=== PATIENT | male | born 1995 | race African-American/Black ===

== ENCOUNTER 2016-11-06 09:13 | Emergency (ER) | payer OTHER ==
[2016-11-06] MEDS ORDERED: IOPAMIDOL-300 100 ML VIAL IVP ONE (11:08)
[2016-11-06] MEDS ORDERED: INSULIN REGULAR HUMAN 100 UNIT/1 ML 10 ML MDV IVP STA ×3 (11:42→15:26)
[2016-11-06] MEDS ORDERED: SODIUM CHLORIDE 0.9% 1,000 ML IV ONE ×2 (11:42→14:05)
[2016-11-06] MEDS ORDERED: INSULIN REGULAR HUMAN 100 UNIT/1 ML 10 ML MDV ONE ×3 (11:47→15:27)
== END 2016-11-06 16:18 | disposition home or self-care (01) ==
DX: E86.0 Dehydration (principal); R10.84 Generalized abdominal pain; E11.65 Type 2 diabetes mellitus with hyperglycemia; R03.0 Elevated blood-pressure reading, without diagnosis of hypertension
CPT/HCPCS: 36415; 74000; 74177; 80053; 81002; 82009; 83036; 83690; 85025; 96360; 96361; 99284; 99285; J1815; Q9967

== ENCOUNTER 2017-01-08 22:22 | Emergency (ER) | payer OTHER ==
[2017-01-08 22:36] VITALS: BP 142/96
[2017-01-08] MEDS ORDERED: CYCLOBENZAPRINE 10 MG TABLET PO STA (23:11)
[2017-01-08] MEDS ORDERED: NAPROXEN 250 MG TABLET PO STA (23:11)
[2017-01-08] MEDS ORDERED: CYCLOBENZAPRINE 10 MG TABLET PO ONE (23:14)
--- NOTE | 2017-01-08 23:14 | ED Physician Documentation ---
PD HPI HEENT - Stated complaint Stated Complaint: JAW PX - Chief complaint Chief Complaint: Heent - History obtained from History obtained from: Patient, Family - History of Present Illness Timing - onset: How many weeks ago (2) Timing - details: Gradual onset, Still present, Intermittant Location: Other (jaw) Worsens: Other (chewing and opening mouth) Associated symptoms: No: Fever, Congestion, Unable to swallow, Swollen nodes Similar symptoms before: No diagnosis Recently seen: Not recently seen - Additional information Additional information: Patient is a 21 year old male with no significant past medical history who is presenting to the emergency department for atraumatic jaw pain. Patient states that he notices it more when he wakes up in the morning and after chewing. patient also states that it clicks and pops frequently as well. Review of Systems Constitutional: denies: Fever, Chills Eyes: denies: Loss of vision, Photophobia Ears: denies: Ear pain Nose: denies: Rhinorrhea / runny nose, Congestion Cardiac: denies: Chest pain / pressure Respiratory: denies: Cough GI: denies: Abdominal Pain, Nausea, Vomiting Skin: denies: Rash, Lesions, Abrasion (s) Neurologic: denies: Generalized weakness, Focal weakness, Numbness Immunocompromised: denies: Immunocompromised PD PAST MEDICAL HISTORY - Past Medical History Past Medical History: Yes Cardiovascular: None Respiratory: None Neuro: None Endocrine/Autoimmune: Type 2 diabetes GI: None : None HEENT: None Psych: None Musculoskeletal: None Derm: None - Past Surgical History Past Surgical History: No - Present Medications Home Medications: Ambulatory Orders Medication Instructions Recorded Confirmed Cyclobenzaprine [Flexeril] 10 mg PO DAILY #14 tablet 01/08/17 Insulin Glargine [Lantus] 32 unit SUBQ DAILY 01/08/17 01/08/17 Naproxen [Naprosyn] 250 mg PO BID #28 tablet 01/08/17 - Allergies Allergies/Adverse Reactions: Allergies Allergy/AdvReac Type Severity Reaction Status Date / Time No Known Drug Allergies Allergy Verified 01/08/17 22:34 - Social History Does the pt smoke?: No Smoking Status: Never smoker Does the pt drink ETOH?: No Does the pt have substance abuse?: No - Immunizations Immunizations are current?: Yes - POLST Patient has POLST: No PD ED PE NORMAL - Vitals Vital signs reviewed: Yes - General General: Alert and oriented X 3, No acute distress - HEENT HEENT: Atraumatic, PERRL, Pharynx benign - Neck Neck: Supple, no meningeal sign, No JVD - Cardiac Cardiac: RRR, No murmur - Respiratory Respiratory: No respiratory distress, Clear bilaterally - Abdomen Abdomen: Soft, Non tender, Non distended - Derm Derm: Normal color, Warm and dry, No rash - Extremities Extremities: No deformity, No tenderness to palpate, Normal ROM s pain - Neuro Neuro: Alert and oriented X 3, 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 Patient was in no acute distress. Patient's findings were consistent with tmj. Patient was treated with naproxen and flexeril. Patient required no further inpatient work up at this time and was stable for discharge with outpatient follow up. Departure - Departure Disposition: 01 Home, Self Care Clinical Impression: TMJ (sprain of temporomandibular joint) Condition: Good Instructions: ED TMJ Syndrome Follow-Up: JONATHAN MEI [Primary Care Provider] - Within 1 week Prescriptions: Cyclobenzaprine [Flexeril] 10 mg PO DAILY #14 tablet Naproxen [Naprosyn] 250 mg PO BID #28 tablet Comments: Your symptoms are likely being caused by inflammation of your tmj. You should trial a two week course of naproxen twice a day and flexeril before you go to bed. You should take the naproxen with mild or food and you cannot take the flexeril with alcohol or other sedatives. You should follow up with your pmd if your symptoms persist, and your dentist for mouth gaurd. You may return to the emergency department at any time for new, worsening or uncontrollable sympotms.
[2017-01-08] MEDS ORDERED: NAPROXEN 250 MG TABLET PO ONE (23:15)
== END 2017-01-08 23:27 | disposition home or self-care (01) ==
LOC: ED 22:22
DX: S03.40XA Sprain of jaw, unspecified side, initial encounter (principal); X58.XXXA Exposure to other specified factors, initial encounter; E11.9 Type 2 diabetes mellitus without complications; Z79.4 Long term (current) use of insulin
CPT/HCPCS: 99283; A9270

== ENCOUNTER 2017-05-13 18:02 | Emergency (ER) | payer OTHER ==
[2017-05-13 18:09] VITALS: BP 158/100
[2017-05-13] MEDS ORDERED: FLUCONAZOLE 100 MG TABLET PO STA (18:22)
--- NOTE | 2017-05-13 18:24 | ED Physician Documentation ---
PD HPI SKIN - Stated complaint Stated Complaint: MALE - Chief complaint Chief Complaint: Wound - History obtained from History obtained from: Patient - History of Present Illness Timing - onset: Other (Circumcised 21-year-old gentleman with type 2 diabetes presents with 3 days of feeling like the skin just proximal to the glans penis is raw. has no symptoms. They are monogamous.) Review of Systems Constitutional: denies: Fever, Chills Eyes: denies: Loss of vision, Decreased vision Nose: denies: Rhinorrhea / runny nose, Congestion PD PAST MEDICAL HISTORY - Past Medical History Cardiovascular: None Respiratory: None Neuro: None Endocrine/Autoimmune: Type 2 diabetes GI: None : None HEENT: None Psych: None Musculoskeletal: None Derm: None - Past Surgical History Past Surgical History: No - Present Medications Home Medications: Ambulatory Orders Medication Instructions Recorded Confirmed Cyclobenzaprine [Flexeril] 10 mg PO DAILY #14 tablet 01/08/17 Insulin Glargine [Lantus] 32 unit SUBQ DAILY 01/08/17 01/08/17 Naproxen [Naprosyn] 250 mg PO BID #28 tablet 01/08/17 Clotrimazole 1 appful TP TID 10 Days 05/13/17 - Allergies Allergies/Adverse Reactions: Allergies Allergy/AdvReac Type Severity Reaction Status Date / Time No Known Drug Allergies Allergy Verified 05/13/17 18:09 - Social History Does the pt smoke?: No Smoking Status: Never smoker Does the pt drink ETOH?: No Does the pt have substance abuse?: No - Immunizations Immunizations are current?: Yes - POLST Patient has POLST: No PD ED PE NORMAL - Vitals Vital signs reviewed: Yes - General General: Alert and oriented X 3, No acute distress - Male Male : Other (He has an area of balanitis especially on the left side just proximal to the glans penis) - Back Back: No CVA TTP, No spinal TTP - Derm Derm: Normal color, Warm and dry - Neuro Neuro: Alert and oriented X 3, Normal speech - Psych Psych: Normal mood, Normal affect Results - Vitals Vitals: Vital Signs - 24 hr 05/13/17 18:07 Temperature 36.7 C Heart Rate 90 Respiratory 14 Rate Blood Pressure 158/100 H O2 Saturation 100 Oxygen O2 Source Room air Departure - Departure Disposition: 01 Home, Self Care Clinical Impression: Balanitis Condition: Good Record reviewed to determine appropriate education?: Yes Instructions: ED Balanitis Prescriptions: Clotrimazole 1 appful TP TID 10 Days Comments: Call your doctor to arrange a follow-up appointment, make the next available appointment. In the interim, return anytime if worse or if new symptoms develop. Your blood pressure was elevated today on check into the emergency department. This does not mean that you have hypertension, it is a common phenomenon to come to the emergency department and have elevated blood pressure. I recommend that she see your primary care physician within the week to have it rechecked when you are feeling better.
[2017-05-13] MEDS ORDERED: FLUCONAZOLE 100 MG TABLET ONE (18:31)
== END 2017-05-13 18:31 | disposition home or self-care (01) ==
LOC: ED 18:02
DX: N48.1 Balanitis (principal); E11.9 Type 2 diabetes mellitus without complications; Z79.4 Long term (current) use of insulin; R03.0 Elevated blood-pressure reading, without diagnosis of hypertension
CPT/HCPCS: 99283; A9270